=== PATIENT | female | born 1985 | race Caucasian/White ===

== ENCOUNTER 2016-05-27 20:35 | Observation (INO) | payer BC ==
[~2016-05-27] VITALS: Ht 170.2 cm; Wt 60.0 kg
[2016-05-27 20:42] VITALS: BP 88/56; PULSE 118; RESP 15; TEMP 98.7; O2SAT 99
--- NOTE | 2016-05-27 20:54 | PD ---
Physical Exam Date Seen by Provider: May 27, 2016 Time Seen by Provider: 20:45 Narrative Pt is a 30 year old female presenting to the ED with abdominal pain, pain started getting worse today. Pt feels nauseated. Skin around feeding tube looks irritated and pt reports a foul smell coming from it. Pt reports feeling fatigued, and generally not well. PCP out of state. Pt takes Soma but no other narcotic medication that would cause her to be more drowsy. PMHx: Small intestinal bacterial overgrowth, lupus, auto immune disorder recently diagnosed that she is unsure of the name of. . Data Data Last Documented VS Vital Signs Date Time Temp Pulse Resp B/P Pulse Ox O2 Delivery O2 Flow Rate FiO2 05/27/16 20:42 98.7 118 15 88/56 99 Room Air [facility] Supervised Visit with MARILYN: Shalonda Donaldson May 27, 2016 20:54
[2016-05-27] MEDS ORDERED: SODIUM CHLOR 0.9% 1000 ML INJ 1,000 ML IV SCH (21:41)
[2016-05-27 21:44] VITALS: RESP 16; O2SAT 99
[2016-05-27] MEDS ORDERED: ONDANSETRON HCL 4 MG/2 ML VIAL IVP ONE (21:45)
--- NOTE | 2016-05-27 21:51 | PD ---
HPI Chief Complaint: Abdominal Pain Time Seen by Provider: 21:45 Travel History International Travel<30 days: No Contact w/Intl Traveler<30days: No Traveled to known affect area: No History of Present Illness HPI 30-year-old female that presents to the ED for evaluation of generalized weakness, fatigue and abdominal discomfort. Per patient she has a history of lupus as well as [employer]UD[employer]IDENT with a PEG tube that presents to the ED for evaluation of feeling more fatigued and coldness as well as abdominal discomfort. Per patient she just changed her PEG tube herself yesterday. Per patient she's been having some discomfort as well as irritation of the skin around the area. She was concerned that she might have an infection as last and she had the symptoms per patient her heart stopped. Per patient she does have 2 daughters at home with her to have been sick with some GI symptoms. She states that she' s been feeling nauseous and has vomited. She denies any bleeding of any kind. No urinary or bowel movement issues. She chronically takes OxyContin and Soma states that she is compliant with the medications and has not been taking more than her usual. She states the pain is 6 out of 10. Does not radiate. Patient states mainly around the PEG tube area. On exam she is somewhat lethargic but answers questions a properly. Some of the history is obtained from the family member who is present and is me information about her medical conditions as well as a list of her medications. Patient went today to the [facility]. Per patient nothing seems to make the symptoms better or worse. Allergies to Compazine and reglan [facility] Past Medical History Diminished Hearing: No Gastrointestinal Disorders: Yes (IBS, GASTRO [place]) Tetanus Vaccination: Unknown Influenza Vaccination: No ?: Not LMP: 05/13/16 Past Surgical History Section: Yes (6X) Other Surgery: Yes (PEG TUBE PLACEMENT) Social History Alcohol Use: Yes (OCCASSIONALLY) Tobacco Use: Yes (OCCASSIONALLY) Substance Use: No Allergies-Medications (Allergen,Severity, Reaction): Coded Allergies: Compazine (Verified Allergy, Severe, 05/27/16) Reglan (Verified Allergy, Severe, 05/27/16) Review of Systems Except as stated in HPI: all other systems reviewed are Neg Physical Exam Narrative GENERAL: SKIN: Warm and dry. HEAD: Atraumatic. Normocephalic. EYES: Pupils equal and round. No scleral icterus. No injection or drainage. ENT: No nasal bleeding or discharge. Mucous membranes pink and moist. Tongue is midline. No uvula deviation. NECK: Trachea midline. No JVD. CARDIOVASCULAR: Regular rate and rhythm. No murmurs, S3, S4. RESPIRATORY: No accessory muscle use. Clear to auscultation. Breath sounds equal bilaterally. GASTROINTESTINAL: Abdomen soft, tenderness to palpation around the area of the PEG tube. Objective appears to be intact. Patient does have an area of erythema around the area of the PEG tube, nondistended. Hepatic and splenic margins not palpable. MUSCULOSKELETAL: Extremities without clubbing, cyanosis, or edema. No obvious deformities. Full range of motion of the upper and lower extremities bilaterally. 2+ pulses bilaterally. NEUROLOGICAL: Awake and alert and oriented 4.. No obvious cranial nerve deficits. Motor grossly within normal limits. Five out of 5 muscle strength in the arms and legs. Normal speech. PSYCHIATRIC: Appropriate mood and affect; insight and judgment normal. Data Data Last Documented VS Vital Signs Date Time Temp Pulse Resp B/P Pulse Ox O2 Delivery O2 Flow Rate FiO2 05/27/16 21:44 16 99 Room Air 05/27/16 20:42 98.7 118 88/56 Orders Complete Blood Count With Diff (05/27/16 21:41) Comprehensive Metabolic Panel (05/27/16 21:41) Lipase (05/27/16 21:41) Lactic Acid (05/27/16 21:41) Urinalysis - C+S If Indicated (05/27/16 21:41) Ct Abd/Pel W Iv Contrast(Rout) (05/27/16 21:41) Iv Access Insert/Monitor (05/27/16 21:41) Ecg Monitoring (05/27/16 21:41) Oximetry (05/27/16 21:41) Ondansetron Inj (Zofran Inj) (05/27/16 21:45) Sodium Chlor 0.9% 1000 Ml Inj (Ns 1000 M (05/27/16 21:41) Ed Urine Pregnancytest Poc (05/27/16 21:41) Blood Culture (05/27/16 21:41) Influenzae A/B Antigen (05/27/16 21:52) Sodium Chlor 0.9% 1000 Ml Inj (Ns 1000 M (05/27/16 22:30) MDM Medical Decision Making Medical Screen Exam Complete: Yes Emergency Medical Condition: Yes Medical Record Reviewed: Yes Differential Diagnosis Sepsis versus abdominal discomfort versus abdominal pain versus acute abdomen versus gastroparesis versus obstruction Narrative Course 30-year-old female that presents to the ED for evaluation of lethargy and abdominal pain. Patient was properly examined and was found to have signs and symptoms of unclear etilogy at this time. Patient does have a history of GI issues as well as IBS. At this time I recommend labs and imaging. Patient was given IV fluids and antiemetics. Case signed out to my attending pending dispo. Sepsis Criteria SIRS Criteria (2 or more): Heart rate over 90 Bhavesh Oliveira May 27, 2016 21:51
--- NOTE | 2016-05-27 22:23 | PD ---
Physical Exam Date Seen by Provider: May 27, 2016 Time Seen by Provider: 22:22 Narrative The patient is a 30-year-old female was initially evaluated by the mid-level provider, Bhavesh Oliveira PA-C. Please refer to the initial history, physical, diagnostic evaluation, and treatment modality plan. Data Data Last Documented VS Vital Signs Date Time Temp Pulse Resp B/P Pulse Ox O2 Delivery O2 Flow Rate FiO2 05/28/16 00:36 77 18 121/68 99 Room Air 05/27/16 20:42 98.7 Orders Complete Blood Count With Diff (05/27/16 21:41) Comprehensive Metabolic Panel (05/27/16 21:41) Lipase (05/27/16 21:41) Lactic Acid (05/27/16 21:41) Urinalysis - C+S If Indicated (05/27/16 21:41) Ct Abd/Pel W Iv Contrast(Rout) (05/27/16 21:41) Iv Access Insert/Monitor (05/27/16 21:41) Ecg Monitoring (05/27/16 21:41) Oximetry (05/27/16 21:41) Ondansetron Inj (Zofran Inj) (05/27/16 21:45) Sodium Chlor 0.9% 1000 Ml Inj (Ns 1000 M (05/27/16 21:41) Ed Urine Pregnancytest Poc (05/27/16 21:41) Blood Culture (05/27/16 21:41) Influenzae A/B Antigen (05/27/16 21:52) Sodium Chlor 0.9% 1000 Ml Inj (Ns 1000 M (05/27/16 22:30) Sodium Chlor 0.9% 1000 Ml Inj (Ns 1000 M (05/27/16 23:30) Iohexol 350 Inj (Omnipaque 350 Inj) (05/27/16 23:48) Morphine Inj (Morphine Inj) (05/28/16 00:30) Diphenhydramine Inj (Benadryl Inj) (05/28/16 00:45) Admit Order (Ed Use Only) (05/28/16 00:37) Labs Laboratory Tests Test 05/27/16 05/27/16 22:40 23:55 White Blood Count 4.9 TH/MM3 Red Blood Count 3.98 MIL/MM3 Hemoglobin 11.1 GM/DL Hematocrit 33.5 % Mean Corpuscular Volume 84.1 FL Mean Corpuscular Hemoglobin 27.9 PG Mean Corpuscular Hemoglobin 33.2 % Concent Red Cell Distribution Width 14.3 % Platelet Count 284 TH/MM3 Mean Platelet Volume 10.5 FL Neutrophils (%) (Auto) 56.0 % Lymphocytes (%) (Auto) 35.4 % Monocytes (%) (Auto) 7.0 % Eosinophils (%) (Auto) 0.9 % Basophils (%) (Auto) 0.7 % Neutrophils # (Auto) 2.7 TH/MM3 Lymphocytes # (Auto) 1.7 TH/MM3 Monocytes # (Auto) 0.3 TH/MM3 Eosinophils # (Auto) 0.0 TH/MM3 Basophils # (Auto) 0.0 TH/MM3 CBC Comment DIFF FINAL Differential Comment Sodium Level 145 MEQ/L Potassium Level 4.0 MEQ/L Chloride Level 111 MEQ/L Carbon Dioxide Level 22.0 MEQ/L Anion Gap 12 MEQ/L Blood Urea Nitrogen 8 MG/DL Creatinine 0.61 MG/DL Estimat Glomerular Filtration 114 ML/MIN Rate Random Glucose 80 MG/DL Lactic Acid Level 3.5 mmol/L Calcium Level 8.0 MG/DL Total Bilirubin 0.3 MG/DL Aspartate Amino Transf 13 U/L (AST/SGOT) Alanine Aminotransferase 17 U/L (ALT/SGPT) Alkaline Phosphatase 64 U/L Total Protein 6.9 GM/DL Albumin 4.0 GM/DL Lipase 114 U/L Urine Color YELLOW Urine Turbidity CLEAR Urine pH 6.0 Urine Specific [place] 1.041 Urine Protein 30 mg/dL Urine Glucose (UA) NEG mg/dL Urine Ketones 40 mg/dL Urine Occult Blood NEG Urine Nitrite NEG Urine Bilirubin NEG Urine Urobilinogen LESS THAN 2.0 MG/DL Urine Leukocyte Esterase NEG Urine RBC LESS THAN 1 /hpf Urine WBC 3 /hpf Urine Squamous Epithelial 1 /hpf Cells Urine Bacteria RARE /hpf Urine Hyaline Casts 20 /lpf Urine Granular Casts 1 /lpf Urine Mucus MOD /lpf Microscopic Urinalysis Comment CULT NOT INDICATED MDM Medical Record Reviewed: Yes Supervised Visit with MARILYN: Yes Interpretation(s) CT of the abdomen and pelvis reveals normal examination. Patient has a gastrojejunostomy tube without complication. Laboratory Tests Test 05/27/16 22:40 White Blood Count 4.9 TH/MM3 Red Blood Count 3.98 MIL/MM3 Hemoglobin 11.1 GM/DL Hematocrit 33.5 % Mean Corpuscular Volume 84.1 FL Mean Corpuscular Hemoglobin 27.9 PG Mean Corpuscular Hemoglobin 33.2 % Concent Red Cell Distribution Width 14.3 % Platelet Count 284 TH/MM3 Mean Platelet Volume 10.5 FL Neutrophils (%) (Auto) 56.0 % Lymphocytes (%) (Auto) 35.4 % Monocytes (%) (Auto) 7.0 % Eosinophils (%) (Auto) 0.9 % Basophils (%) (Auto) 0.7 % Neutrophils # (Auto) 2.7 TH/MM3 Lymphocytes # (Auto) 1.7 TH/MM3 Monocytes # (Auto) 0.3 TH/MM3 Eosinophils # (Auto) 0.0 TH/MM3 Basophils # (Auto) 0.0 TH/MM3 CBC Comment DIFF FINAL Differential Comment Sodium Level 145 MEQ/L Potassium Level 4.0 MEQ/L Chloride Level 111 MEQ/L Carbon Dioxide Level 22.0 MEQ/L Anion Gap 12 MEQ/L Blood Urea Nitrogen 8 MG/DL Creatinine 0.61 MG/DL Estimat Glomerular Filtration 114 ML/MIN Rate Random Glucose 80 MG/DL Lactic Acid Level 3.5 mmol/L Calcium Level 8.0 MG/DL Total Bilirubin 0.3 MG/DL Aspartate Amino Transf 13 U/L (AST/SGOT) Alanine Aminotransferase 17 U/L (ALT/SGPT) Alkaline Phosphatase 64 U/L Total Protein 6.9 GM/DL Albumin 4.0 GM/DL Lipase 114 U/L Last Impressions Abdomen/Pelvis CT 05/27/16 2141 Signed Impressions: Service Date/Time: Friday, May 27, 2016 23:36 - CONCLUSION: Normal examination. Patient has a gastrojejunostomy tube without complication. Mookie Meeks MD Date/Time Procedure Status Source Growth 05/27/16 22:30 Aerobic Blood Culture Received Blood Peripheral Pending 05/27/16 22:30 Anaerobic Blood Culture Received Blood Peripheral Pending 05/27/16 22:40 Aerobic Blood Culture Received Blood Peripheral Pending 05/27/16 22:40 Anaerobic Blood Culture Received Blood Peripheral Pending 05/27/16 23:55 Influenza Types A,B Antigen ([place]) - Final Complete Nasal Washing NEGATIVE FOR FLU A AND B ANTIGEN.... Differential Diagnosis Differential diagnosis includes sepsis, intra-abdominal abscess, dehydration, electrolyte abnormality, colitis, enteritis, atypical cholecystitis, pancreatitis, gastritis. Narrative Course I, Dr. Hinojosa, have reviewed the advance practice practitioner's documentation and am in agreement, met with the patient face to face, made the diagnosis, and the medical decision making was done by me. *My assessment and Findings: The patient is a 30-year-old female was initially evaluated by the mid-level provider, please refer to the initial history, physical, diagnostic evaluation, and treatment modality plan. The patient is currently visiting from [place], [place]. The patient states she has a history of intestinal overgrowth bacteria and was recently diagnosed with lupus. The patient is not currently on any rheumatologic medications, but takes multiple pain medicines and sedatives on a daily basis including Ativan, Soma, and oxycodone. The patient does have a G-tube in place, complains of mild irritation just superior to the G-tube. She is also on clonidine for a history of hypertension. The patient is currently in town, visiting her sister. The patient does complain of increased lethargy, denies any increase intake of her oxycodone, Soma, or Ativan. On examination the patient is somewhat lethargic, does respond to voice commands and will follow commands. Her blood pressure initially had a systolic that range from the 70s to the 90s, she was administered IV fluids. Initially she was tachycardic 117, heart rate came down into the 70s. Abdominal exam reveals mild tenderness but no guarding or rigidity. CT of the abdomen and pelvis was ordered. Labs were drawn and sent. The patient was requesting pain medications, however, advised her I cannot administered any narcotic medications as her blood pressure was slightly low at she was slightly lethargic, possibly secondary to her current medications. The patient's white count was normal. Lactic acid is mildly elevated at 3.5, patient was administered 2 L of IV fluids, third liter of IV fluids was ordered. UA reveals ketones, otherwise unremarkable. Influenza is negative. The patient was reevaluated at 12:23 AM, her blood pressure was up to 121/80. However, she still feels lethargic and complains of pain. She is requesting pain medications. I advised her I would give her some morphine, but would not write for the [place] Ativan and she is still somewhat lethargic. The on-call medical team will be paged for 23 hour observation. Sepsis Criteria SIRS Criteria (2 or more): Heart rate over 90 Severe Sepsis (+one): Hypotension, Lactate >2 Physician Communication Physician Communication The on-call medical team was paged for admission. I discussed the patient Dr. Dominguez who agrees with 23 hour observation. Diagnosis Primary Impression: Abdominal pain Qualified Code: R10.84 - Generalized abdominal pain Additional Impressions: Dehydration Lactic acidosis Admitting Information Admitting Physician Requests: Observation Condition: Stable Harley Hinojosa MD May 27, 2016 22:23
[2016-05-27] MEDS ORDERED: SODIUM CHLOR 0.9% 1000 ML INJ 1,000 ML IV ONE ×2 (22:30→23:30)
[2016-05-27 22:55] LABS: AUTOMATED NEUTROPHIL # 2.7 TH/MM3 (1.8-7.7); BASOPHIL % 0.7 % (0.0-2.0); EOSINOPHIL % 0.9 % (0.0-4.0); HEMATOCRIT 33.5 % (35.0-46.0); HEMO FLAGS DIFF FINAL; LYMPH % 35.4 % (9.0-44.0); LYMPHOCYTE # 1.7 TH/MM3 (1.0-4.8); MEAN CELL VOLUME 84.1 FL (80.0-100.0); MEAN CORPUSCULAR HEMOGLOBIN 27.9 PG (27.0-34.0); MEAN CORPUSCULAR HGB CONC 33.2 % (32.0-36.0); PLATELET COUNT 284 TH/MM3 (150-450); RED BLOOD COUNT 3.98 MIL/MM3 (4.00-5.30); RED CELL DISTRIBUTION WIDTH 14.3 % (11.6-17.2); WHITE BLOOD COUNT 4.9 TH/MM3 (4.0-11.0)
[2016-05-27 23:00] VITALS: BP 79/50; PULSE 75; RESP 16; O2SAT 97
[2016-05-27 23:12] LABS: ALT (GPT) 17 U/L (10-53); ANION GAP 12 MEQ/L (5-15); AST (GOT) 13 U/L (15-37); BLOOD UREA NITROGEN 8 MG/DL (7-18); CHLORIDE 111 MEQ/L (98-107); GLOMERULAR FILTRATION RATE 114 ML/MIN (>89); SODIUM (NA) 145 MEQ/L (136-145)
[2016-05-27 23:14] LABS: ALKALINE PHOSPHATASE 64 U/L (45-117); TOTAL BILIRUBIN ADULT 0.3 MG/DL (0.2-1.0)
[2016-05-27 23:23] VITALS: BP 83/51; PULSE 92; RESP 20; O2SAT 98
[2016-05-27] MEDS ORDERED: CLON0.2T PO (23:27)
[2016-05-27] MEDS ORDERED: OXYC-396 PO (23:27)
[2016-05-27] MEDS ORDERED: SOMA350T PO (23:27)
[2016-05-27] MEDS ORDERED: LORA-475 PO (23:27)
[2016-05-27] MEDS ORDERED: IOHEXOL 350 MG/ML 10 ML VIAL (for RAD DIAG) IV ONE (23:48)
[2016-05-27 23:59] VITALS: BP 91/52; PULSE 75; RESP 18; O2SAT 99
[2016-05-28] VITALS (8 sets, daily range): BP systolic 104–170; BP diastolic 57–91; PULSE 74–116; RESP 14–19; TEMP 96.9–98.6; O2SAT 97–100
--- NOTE | 2016-05-28 00:05 | RADRPT ---
EXAM DATE/TIME: 05/27/2016 23:36 [facility] COMPARISON: No previous studies available for comparison. INDICATIONS : Abdomen pain and nausea. IV CONTRAST: 80 cc Omnipaque 350 (iohexol) IV ORAL CONTRAST: No oral contrast ingested. RADIATION DOSE: 6.09 CTDIvol (mGy) MEDICAL HISTORY : Gastroparesis. Lupus SURGICAL HISTORY : section. Peg tube ENCOUNTER: Initial ACUITY: 1 day PAIN SCALE: 8/10 LOCATION: Bilateral abdomen TECHNIQUE: Volumetric scanning of the abdomen and pelvis was performed. Using automated exposure control and ad justment of the mA and/or kV according to patient size, radiation dose was kept as low as reasonably achievable to obtain optimal diagnostic quality images. FINDINGS: LOWER LUNGS: The visualized lower lungs are clear. LIVER: Homogeneous density without lesion. There is no dilation of the biliary tree. No calcified gallston es. SPLEEN: Normal size without lesion. PANCREAS: Within normal limits. KIDNEYS: Normal in size and shape. There is no mass, stone or hydronephrosis. ADRENAL GLANDS: Within normal limits. VASCULAR: There is no aortic aneurysm. BOWEL/MESENTERY: Gastrojejunostomy tube is noted . The stomach, small bowel, and colon demonstrate no acute abnormalit y. There is no free intraperitoneal air or fluid. ABDOMINAL WALL: Within normal limits. RETROPERITONEUM: There is no lymphadenopathy. BLADDER: No wall thickening or mass. REPRODUCTIVE: Within normal limits. INGUINAL: There is no lymphadenopathy or hernia. MUSCULOSKELETAL: Within normal limits for patient age. CONCLUSION: Normal examination. Patient has a gastrojejunostomy tube without complication. Mookie Meeks MD on May 28, 2016 at 0:02 Board Certified Radiologist. This report was verified electronically.
[2016-05-28 00:13] LABS: BACTERIA, URINE RARE /hpf; BLOOD, URINE NEG (NEG); GLUCOSE,URINE NEG (NEG); GRANULAR CAST, URINE 1 /lpf; HYALINE CAST, URINE 20 /lpf (RARE); KETONE, URINE 40 mg/dL (NEG); MUCUS URINE MOD /lpf (OCC); NITRITE,URINE NEG (NEG); SQUAMOUS EPITHELIAL CELL URINE 1 /hpf (0-5); URINE COLOR YELLOW (YELLW/STRAW)
[2016-05-28] MEDS ORDERED: MORPHINE SULFATE 4 MG/ML INJ IV PUSH ONE (00:30)
[2016-05-28] MEDS ORDERED: diphenhydrAMINE HCL 50 MG/ML VIAL IV PUSH ONE (00:45)
[2016-05-28] MEDS ORDERED: MAGNESIUM HYDROXIDE SUSP 30 ML CUP PO PRN (00:45)
[2016-05-28] MEDS ORDERED: ACETAMINOPHEN 325 MG TAB PO PRN (00:45)
[2016-05-28] MEDS ORDERED: NALOXONE HCL 0.4 MG/ML AMP IV PRN (00:45)
--- NOTE | 2016-05-28 00:52 | HHI.HP ---
[facility] Non-Staff Admission Diagnosis abdominal pain, lactic acidosis, dehydration Diagnoses: (1) Sepsis (2) Dehydration (3) Abdominal pain Chief Complaint: severe abdominal pain Travel History International Travel<30 Days: No Contact w/Intl Traveler <30 Da: No Traveled to Known Affected Are: No History of Present Illness Mrs. Centeno is a 30-year-old chronically ill female visiting her sister here in the [place] area from [place], [place] with a history of lupus, gastroparesis, hypertension, irritable bowel syndrome who presented to the emergency room on 05/27/2016 complaining of severe abdominal pain around GJ tube. CT scan of abdomen/pelvis was normal and showed G J-tube without complication. Lactic acid is elevated at 3.5 and UA is consistent with dehydration with urine specific gravity of 1.041, + protein, and + ketones.. Patient has had a GJ tube since 2014 and it is not exactly clear why this was placed. She has chronic pain and takes oxycodone 20 mg every 3 hours and also takes Soma. She states that she always has some degree of abdominal pain but this morning she developed severe pain that she describes as aching and located around her GJ tube. She also has some excoriated lesions near the tube insertion site but she states been present for about 2-3 weeks with some surrounding erythema. She reports chills and subjective fever, nausea without vomiting. She states that she has been able to hold down liquids but not solids. She has been in [place] for one week and is supposed to return back to [place] next . . Review of Systems Except as stated in HPI: all other systems reviewed are Neg Past Family Social History Past Medical History Gastroparesis Irritable Bowel Syndrome Lupus - rare type Hypertension . Past Surgical History G/J-tube placement - 2014 Right knee surgery x 6 . Reported Medications Reported Meds & Active Scripts Active Reported Oxycodone (Oxycodone HCl) 20 Mg Tab 20 Mg PO Q3HR PRN Soma (Carisoprodol) 350 Mg Tab 350 Mg PO Q6HR PRN Clonidine (Clonidine HCl) 0.2 Mg Tab 0.2 Mg PO QID - takes at least once daily for hypertension Ativan (Lorazepam) 2 Mg Tab 2 Mg PO Q6H PRN . Allergies: Coded Allergies: Compazine (Verified Allergy, Severe, 05/27/16) Reglan (Verified Allergy, Severe, 05/27/16) Active Ordered Medications Current Medications Ondansetron HCl 4 mg 4 mg ONCE ONCE IVP Last administered on 05/27/16 22:56; Start 05/27/16 at 21:45; Stop 05/27/16 at 21:46; Status DC Sodium Chloride 1,000 ml @ 1,000 mls/hr Q1H IV Last administered on 05/27/16 22:56; Start 05/27/16 at 21:41; Stop 05/27/16 at 22:40; Status DC Sodium Chloride 1,000 ml @ 999 mls/hr BOLUS ONCE IV Last administered on 05/27 22:56; Start 05/27/16 at 22:30; Stop 05/27/16 at 23:30; Status DC Sodium Chloride (NS 1000 ml Inj) 1,000 ml @ 999 mls/hr BOLUS ONCE IV Last administered on 05/28/16 00:16; Start 05/27/16 at 23:30; Stop 05/28/16 at 00:30 ; Status DC Iohexol (Omnipaque 350 Inj) 80 ml STK-MED ONCE IV Last administered on 23:48; Start 05/27/16 at 23:48; Stop 05/27/16 at 23:49; Status DC Morphine Sulfate (Morphine Inj) 2 mg ONCE ONCE IV PUSH Last administered on 00:43; Start 05/28/16 at 00:30; Stop 05/28/16 at 00:31; Status DC Diphenhydramine HCl 25 mg 25 mg ONCE ONCE IV PUSH Last administered on 00:43; Start 05/28/16 at 00:45; Stop 05/28/16 at 00:46; Status DC Sodium Chloride (NS 1000 ml Inj) 1,000 ml @ 150 mls/hr Q6H40M IV ; Start at 00:40 Sodium Chloride (NS Flush) 2 ml UNSCH PRN IV FLUSH FLUSH AFTER USING IV ACCESS ; Start 05/28/16 at 00:45 Sodium Chloride (NS Flush) 2 ml BID IV FLUSH ; Start 05/28/16 at 09:00 Acetaminophen (Tylenol) 650 mg Q4H PRN PO Fever, headache, Pain 1-4; Start at 00:45 Ondansetron HCl (Zofran Inj) 4 mg Q6H PRN IVP NAUSEA OR VOMITING; Start at 00:45 Magnesium Hydroxide (Milk Of Monico Torres) 30 ml Q12H PRN PO CONSTIPATION; Start 05/28/16 at 00:45 Naloxone HCl (Narcan Inj) 0.4 mg UNSCH PRN IV SEE LABEL COMMENTS; Start at 00:45 Morphine Sulfate (Morphine Inj) 4 mg Q3H PRN IV PUSH PAIN SCALE 5 TO 10; Start 05/28/16 at 00:45 . Family History Has cousins with lupus . Social History Tobacco: rare use Alcohol: rare use Illicit Drugs: denies . Physical Exam Vital Signs Vital Signs Date Time Temp Pulse Resp B/P Pulse Ox O2 Delivery O2 Flow Rate FiO2 05/28/16 00:36 77 18 121/68 99 Room Air 05/27/16 23:59 75 18 91/52 99 Room Air 05/27/16 23:23 92 20 83/51 98 Room Air 05/27/16 23:00 75 16 79/50 97 Room Air 05/27/16 21:44 16 99 Room Air 05/27/16 20:42 98.7 118 15 88/56 99 Room Air Physical Exam GENERAL: This is a thin, somewhat lethargic patient, in no apparent distress. SKIN: No rashes, ecchymoses. Cool and dry. G/J-tube LUQ abdomen and small area of erythema and edema near tube insertion sitecore developer: Atraumatic. Normocephalic. EYES: No scleral icterus. No injection or drainage. ENT: Nose without bleeding, purulent drainage. NECK: Trachea midline. No JVD or lymphadenopathy. CARDIOVASCULAR: Regular rate and rhythm without murmurs, gallops, or rubs. RESPIRATORY: Clear to auscultation. Breath sounds equal bilaterally. No wheezes , rales, or rhonchi. GASTROINTESTINAL: Abdomen soft, nondistended. No guarding. Tender near G-J tube. MUSCULOSKELETAL: Extremities without clubbing, cyanosis, or edema. No calf tenderness. NEUROLOGICAL: Somewhat lethargic; hypophonic speech. . Laboratory Laboratory Tests Test 05/27/16 05/27/16 22:40 23:55 White Blood Count 4.9 Red Blood Count 3.98 Hemoglobin 11.1 Hematocrit 33.5 Mean Corpuscular Volume 84.1 Mean Corpuscular Hemoglobin 27.9 Mean Corpuscular Hemoglobin 33.2 Concent Red Cell Distribution Width 14.3 Platelet Count 284 Mean Platelet Volume 10.5 Neutrophils (%) (Auto) 56.0 Lymphocytes (%) (Auto) 35.4 Monocytes (%) (Auto) 7.0 Eosinophils (%) (Auto) 0.9 Basophils (%) (Auto) 0.7 Neutrophils # (Auto) 2.7 Lymphocytes # (Auto) 1.7 Monocytes # (Auto) 0.3 Eosinophils # (Auto) 0.0 Basophils # (Auto) 0.0 CBC Comment DIFF FINAL Differential Comment Sodium Level 145 Potassium Level 4.0 Chloride Level 111 Carbon Dioxide Level 22.0 Anion Gap 12 Blood Urea Nitrogen 8 Creatinine 0.61 Estimat Glomerular Filtration 114 Rate Random Glucose 80 Lactic Acid Level 3.5 Calcium Level 8.0 Total Bilirubin 0.3 Aspartate Amino Transf 13 (AST/SGOT) Alanine Aminotransferase 17 (ALT/SGPT) Alkaline Phosphatase 64 Total Protein 6.9 Albumin 4.0 Lipase 114 Urine Color YELLOW Urine Turbidity CLEAR Urine pH 6.0 Urine Specific [place] 1.041 Urine Protein 30 Urine Glucose (UA) NEG Urine Ketones 40 Urine Occult Blood NEG Urine Nitrite NEG Urine Bilirubin NEG Urine Urobilinogen LESS THAN 2.0 Urine Leukocyte Esterase NEG Urine RBC LESS THAN 1 Urine WBC 3 Urine Squamous Epithelial 1 Cells Urine Bacteria RARE Urine Hyaline Casts 20 Urine Granular Casts 1 Urine Mucus MOD Microscopic Urinalysis Comment CULT NOT INDICATED Date/Time Procedure Status Source Growth 05/27/16 23:55 Influenza Types A,B Antigen ([facility]) - Final Complete Nasal Washing NEGATIVE FOR FLU A AND B ANTIGEN.... 05/27/16 22:40 Aerobic Blood Culture Received Blood Peripheral Pending 05/27/16 22:40 Anaerobic Blood Culture Received Blood Peripheral Pending Result Diagram: 05/27/16223905/27/160 Imaging Last Impressions Abdomen/Pelvis CT 05/27/162140 Signed Impressions: Service Date/Time: Friday, May 27, 2016 23:36 - CONCLUSION: Normal examination. Patient has a gastrojejunostomy tube without complication. Mookie Meeks MD Assessment and Plan Problem List: (1) Sepsis ICD Code: A41.9 Status: Acute (2) Dehydration ICD Code: E86.0 Status: Acute (3) Abdominal pain ICD Code: R10.9 Status: Acute Assessment and Plan Sepsis - Hypotensive and tachycardic - Lactic acid 3.5; will recheck in a.m. - follow results - Ceftriaxone 2 g IV every 24 hours for suspected infection Dehydration - IV fluid hydration with normal saline at 150 cc per hour - clear liquid diet Abdominal Pain - Abdomen/pelvis CT normal - GJ tube without complication - Morphine 4 mg IV every 3 hours as needed for pain Excoriation around GJ tube - Bactroban 2% ointment 3 times a day - Keep area clean and dry DVT prophylaxis - SCDs Written by Angelique Casiano, acting as scribe for Dr. Dominguez on 05/28/16 at 01:00. This note was transcribed by scribe ANN-MARIE Rose. I, Dr. Harshad Dominguez personally performed the history, physical exam, and medical decision making; and confirmed the accuracy of the information in the transcribed note. Authenticated by Dr. Harshad Dominguez on 05/28/16 at 03:09. Discussed Condition With ER physician, patient, and patient's Problem Qualifiers (1) Sepsis: Qualified Code: A41.9 - Sepsis, due to unspecified organism (2) Abdominal pain: Qualified Code: R10.84 - Generalized abdominal pain Angelique aCsiano May 28, 2016 12:52 am Kimi Dominguez DO May 28, 2016 3:10 am
[2016-05-28] MEDS: MUPIROCIN 2% OINT 22 GM TUBE TOPICAL SCH ×4 (02:12→21:35)
[2016-05-28] MEDS: SODIUM CHLORIDE 0.9% FLUSH 10 ML FLUSH IV FLUSH PRN ×3 (02:12→16:13)
[2016-05-28] MEDS: SODIUM CHLOR 0.9% 1000 ML INJ 1,000 ML IV SCH ×2 (02:12→09:53)
[2016-05-28] MEDS: cefTRIAXone INJ 2,000 MG in SODIUM CHLORIDE 0.9% INJ 100 ML IV SCH (02:12)
[2016-05-28] MEDS: MORPHINE SULFATE 4 MG/ML INJ IV PUSH PRN ×3 (04:32→11:19)
[2016-05-28] MEDS ORDERED: cloNIDine HCL 0.1 MG TAB PO PRN (07:30)
[2016-05-28 09:05] LABS: AUTOMATED NEUTROPHIL # 1.3 TH/MM3 (1.8-7.7); BASOPHIL % 0.8 % (0.0-2.0); EOSINOPHIL # 0.1 TH/MM3 (0-0.4); EOSINOPHIL % 3.8 % (0.0-4.0); HEMATOCRIT 33.3 % (35.0-46.0); HEMO FLAGS DIFF FINAL; LYMPH % 51.8 % (9.0-44.0); MEAN CELL VOLUME 85.3 FL (80.0-100.0); MEAN CORPUSCULAR HEMOGLOBIN 27.1 PG (27.0-34.0); MEAN CORPUSCULAR HGB CONC 31.8 % (32.0-36.0); MONO % 9.6 % (0.0-8.0); PLATELET COUNT 184 TH/MM3 (150-450); RED BLOOD COUNT 3.91 MIL/MM3 (4.00-5.30); RED CELL DISTRIBUTION WIDTH 14.8 % (11.6-17.2); WHITE BLOOD COUNT 3.9 TH/MM3 (4.0-11.0)
[2016-05-28 09:38] LABS: BICARBONATE 23.3 MEQ/L (21.0-32.0); CALCIUM-PROTEIN CORRECTED 8.1 MG/DL (8.5-10.1); POTASSIUM 3.7 MEQ/L (3.5-5.1); TOTAL BILIRUBIN ADULT 0.4 MG/DL (0.2-1.0)
[2016-05-28] MEDS: SODIUM CHLORIDE 0.9% FLUSH 10 ML FLUSH IV FLUSH SCH ×2 (09:53→21:00)
[2016-05-28] MEDS: ONDANSETRON HCL 4 MG/2 ML VIAL IVP PRN ×2 (09:53→16:13)
[2016-05-28] MEDS ORDERED: LORazepam 0.5 MG TAB PO ONE (10:00)
[2016-05-28 10:32] LABS: COMMENT (UR) CATH-CULTURE IND; CULTURE IF INDICATED CATH CULTURE IND
[2016-05-28] MEDS: SODIUM CHLOR 0.45% 1000 ML INJ 1,000 ML IV SCH ×2 (10:41→21:35)
[2016-05-28 10:53] LABS: AMPHETAMINE, URINE NEG (NEG); BARBITURATES, URINE NEG (NEG); COCAINE, URINE NEG (NEG)
[2016-05-28] MEDS ORDERED: LORazepam 0.5 MG TAB G-TUBE ONE (11:15)
[2016-05-28] MEDS ORDERED: ULTR50TA5 PO (11:46)
[2016-05-28] MEDS ORDERED: GABA300C5 PO (11:46)
[2016-05-28] MEDS ORDERED: KEPP10002 PO (11:46)
[2016-05-28] MEDS ORDERED: LORazepam 1 MG TAB G-TUBE ONE (14:45)
[2016-05-28] MEDS ORDERED: CYCLOBENZAPRINE HCL 10 MG TAB G-TUBE ONE (14:45)
--- NOTE | 2016-05-28 14:55 | HHI.PR ---
Subjective Remarks Follow-up for abdominal cramping. Patient's sister and mother at bedside. RN also at bedside. The patient states that she came in because she was feeling weak and like her blood pressure was low as well as having abdominal cramping. Today she continues to complain of abdominal cramping and "spasms". She does have a GJ tube, but is able to tolerate liquids by mouth, and has been drinking cashew milk. She does feel like her intake has been decreased over the past few days because of the abdominal cramping. She states that she chronically has abdominal issues due to gastroparesis and IBS. She had a normal bowel movement yesterday. She also has chronic issues with bladder spasms and intermittent urinary retention and incontinence, currently having urinary retention today. She is visiting from [place], sees pain management there. With her family's prompting, she has been trying to wean herself off of controlled medications because she knows they exacerbate her gastroparesis. She is requesting her home Soma specifically due to spasms, but is willing to take something not as strong. She has not taken any of her oxycodone in 4 days. She requests IV morphine and IV Benadryl to help with her withdrawals. She states that she gets itching with morphine in the Benadryl helps, no itching with oxycodone. Objective Vitals Vital Signs Date Time Temp Pulse Resp B/P Pulse Ox O2 Delivery O2 Flow Rate FiO2 05/28/16 11:14 98.2 90 16 132/77 99 05/28/16 08:04 98.0 86 14 112/60 98 05/28/16 04:42 16 05/28/16 04:00 96.9 74 16 122/57 98 05/28/16 01:45 78 18 104/69 100 Room Air 05/28/16 00:36 77 18 121/68 99 Room Air 05/27/16 23:59 75 18 91/52 99 Room Air 05/27/16 23:23 92 20 83/51 98 Room Air 05/27/16 23:00 75 16 79/50 97 Room Air 05/27/16 21:44 16 99 Room Air 05/27/16 20:42 98.7 118 15 88/56 99 Room Air Result Diagram: 05/28/16 0845 05/28/16 0845 Imaging Last Impressions Abdomen/Pelvis CT 05/27/162140 Signed Impressions: Service Date/Time: Friday, May 27, 2016 23:36 - CONCLUSION: Normal examination. Patient has a gastrojejunostomy tube without complication. Mookie Meeks MD Objective Remarks GENERAL: Well-developed well-nourished. In mild distress secondary to withdrawals. SKIN: Warm and dry. Superficial excoriations around GJ tube. HEENT: Normocephalic. Pupils equal and round. Mucous membranes pink and moist. CARDIOVASCULAR: Regular rate and rhythm. No murmur appreciated. RESPIRATORY: No accessory muscle use. Clear to auscultation. Breath sounds equal bilaterally. GASTROINTESTINAL: Abdomen soft, non-tender, nondistended. Bowel sounds x4. GJ tube in place. MUSCULOSKELETAL: No obvious deformities. No clubbing or cyanosis. No edema. NEUROLOGICAL: Awake and alert. No focal neurological deficits. Moves upper and lower extremities spontaneously. Normal speech. PSYCHIATRIC: Appropriate mood and affect; insight and judgment normal. A/P Problem List: (1) Dehydration ICD Code: E86.0 Status: Resolved (2) Abdominal pain ICD Code: R10.9 Status: Acute Assessment and Plan 30-year-old chronically ill female visiting her sister here in the [place] area from [place] with a past medical history history of lupus, gastroparesis, hypertension, irritable bowel syndrome who presented with generalized weakness and abdominal cramping SIRS, Hypotension, tachycardia, lactic acidosis: Suspect secondary to withdrawals and dehydration. Afebrile, no leukocytosis. Vitals and labs improved with IVF. Labs today reviewed, changed IV fluids to half-normal saline at decreased rate. Abnormal UA and possible UTI: UA appears borderline, however with urinary retention will empirically treat with IV Ceftriaxone 2 g IV every 24 hours. Follow-up urine culture. If patient is found to have UTI, she would meet severe sepsis criteria. Gastroparesis: Likely exacerbating dehydration. Continue clear liquids. Patient informed that she can resume home tube feeding products as tolerated. Abdominal Pain/cramping: Suspect secondary to acute opiate withdrawal. Abdomen/ pelvis CT normal with GJ tube in place. LFTs and lipase within normal limits. Patient last took oxycodone 4 days ago and UDS is negative for opiates. Treat withdrawal as below. Acute withdrawal from multiple controlled substances: Patient on multiple controlled substances including oxycodone, Ativan, Soma as outpatient, states she is compliant and follows up with physicians in [place]. She feels like she is currently experiencing withdrawal symptoms with shaking, nausea, abdominal cramping. However, she would like to wean off of these medications. The patient's sister will bring in the patient's pill bottles to confirm home doses. UDS positive for benzodiazepines. Once home medications are confirmed we will resume oxycodone, Ativan at decreased doses. Change Soma to Flexeril to attempt to avoid sedation. Acute urinary retention: The patient felt like she was unable to void. Bladder scan was done which showed 550 cc in the bladder. The patient states that this is chronic. Insert Maxwell catheter. Possible voiding trial tomorrow vs outpatient urology follow-up. Excoriation around GJ tube - Bactroban 2% ointment 3 times a day - Keep area clean and dry DVT prophylaxis - SCDs Discharge Planning Possible discharge tomorrow pending further clinical improvement. Problem Qualifiers (1) Abdominal pain: Qualified Code: R10.84 - Generalized abdominal pain Canelo Angela May 28, 2016 14:55
[2016-05-28] MEDS ORDERED: ALPR0.5T3 PO (15:04)
[2016-05-28] MEDS ORDERED: LORA2TAB7 PO (15:04)
[2016-05-28] MEDS ORDERED: ONDA1TAB17 PO (15:04)
[2016-05-28] MEDS ORDERED: DOC-8.6T PO (16:22)
[2016-05-28] MEDS ORDERED: CARV3.12 PO (16:22)
[2016-05-28] MEDS ORDERED: CREON24 PO (16:22)
[2016-05-28] MEDS ORDERED: SENN8.6T5 PO (16:22)
[2016-05-28] MEDS ORDERED: LORazepam 2 MG/ML VIAL IV PUSH PRN (17:45)
[2016-05-28] MEDS: GABAPENTIN 300 MG CAP PO SCH ×2 (18:00→21:33)
[2016-05-28] MEDS: LIPASE/PROTEASE/AMYLASE (24,000/76,000/120,000) CAP PO SCH (18:30)
[2016-05-28] MEDS: levETIRAcetam 500 MG TAB PO SCH (21:34)
[2016-05-28] MEDS: LORazepam 0.5 MG TAB G-TUBE PRN (23:27)
[2016-05-29] MEDS: CYCLOBENZAPRINE HCL 10 MG TAB G-TUBE PRN ×2 (00:08→08:01)
[2016-05-29] MEDS: cefTRIAXone INJ 2,000 MG in SODIUM CHLORIDE 0.9% INJ 100 ML IV SCH (01:41)
[2016-05-29 03:52] VITALS: BP 105/73; PULSE 89; RESP 19; TEMP 98; O2SAT 97
[2016-05-29] MEDS: MUPIROCIN 2% OINT 22 GM TUBE TOPICAL SCH ×2 (05:07→14:00)
[2016-05-29 08:00] VITALS: BP 139/99; PULSE 95; RESP 20; TEMP 97.9; O2SAT 100
[2016-05-29] MEDS: GABAPENTIN 300 MG CAP PO SCH (08:01)
[2016-05-29] MEDS: levETIRAcetam 500 MG TAB PO SCH (08:02)
[2016-05-29] MEDS: LIPASE/PROTEASE/AMYLASE (24,000/76,000/120,000) CAP PO SCH (08:02)
[2016-05-29] MEDS: LORazepam 0.5 MG TAB G-TUBE PRN (08:02)
[2016-05-29] MEDS: SODIUM CHLORIDE 0.9% FLUSH 10 ML FLUSH IV FLUSH SCH (08:59)
[2016-05-29] MEDS: SODIUM CHLOR 0.45% 1000 ML INJ 1,000 ML IV SCH (09:50)
[2016-05-29] MEDS ORDERED: VANCOMYCIN INJ 1,000 MG in SODIUM CHLOR 0.9% 250 ML INJ 250 ML IV ONE (11:30)
[2016-05-29] MEDS ORDERED: LORazepam 2 MG TAB G-TUBE ONE (11:30)
--- NOTE | 2016-05-29 11:30 | HHI.PR ---
Subjective Remarks Follow up for generalized pain. The patient is asking to go home today. She intermittently states that she feels fine and wants to go home and also that she is having generalized pain. She doesn't feel like her symptoms are due to stopping Oxycodone 3 days prior to admission, she feels like she weaned herself off over a few weeks prior to admission. She states that her PCP gave her verbal plan for tapering off of oxycodone. She still has some nausea, but like to try to see if she can tolerate her tube feedings. She is on a special tube feeding product for small bowel bacterial overgrowth syndrome with no lactose or gluten. Her family has arranged for PCP follow-up here with Dr. Rios. Objective Vitals Vital Signs Date Time Temp Pulse Resp B/P Pulse Ox O2 Delivery O2 Flow Rate FiO2 05/29/16 08:21 18 05/29/16 08:00 97.9 95 20 139/99 100 05/29/16 03:52 98.0 89 19 105/73 97 05/28/16 21:07 98.6 103 19 121/91 97 05/28/16 18:28 152/90 05/28/16 15:36 98.5 116 16 170/72 98 I/O 05/28/16 05/28/16 05/28/16 05/29/16 05/29/16 05/29/16 07:00 15:00 23:00 07:00 15:00 23:00 Intake Total 1900 ml Output Total 800 ml Balance 1100 ml Intake Oral 480 ml IV Total 1420 ml Output Urine Total 800 ml Bladder Scan Volume Amount 530 ml # Voids 4 # Bowel Movements 1 Result Diagram: 05/28/16 0845 05/28/16 0845 Imaging Last Impressions Abdomen/Pelvis CT 05/27/16 [id number] Signed Impressions: Service Date/Time: Friday, May 27, 2016 23:36 - CONCLUSION: Normal examination. Patient has a gastrojejunostomy tube without complication. Mookie Meeks MD Objective Remarks GENERAL: Well-developed well-nourished. In mild distress secondary to generalized pain. SKIN: Warm and dry. Superficial excoriations around GJ tube with no surrounding erythema or drainage. HEENT: Normocephalic. Pupils equal and round. Mucous membranes pink and moist. CARDIOVASCULAR: Regular rate and rhythm. No murmur appreciated. RESPIRATORY: No accessory muscle use. Clear to auscultation. Breath sounds equal bilaterally. GASTROINTESTINAL: Abdomen soft, non-tender, nondistended. Bowel sounds x4. GJ tube in place. MUSCULOSKELETAL: No obvious deformities. No clubbing or cyanosis. No edema. NEUROLOGICAL: Awake and alert. No focal neurological deficits. Moves upper and lower extremities spontaneously. Normal speech. PSYCHIATRIC: Appropriate mood and affect; insight and judgment normal. A/P Problem List: (1) Dehydration ICD Code: E86.0 Status: Resolved (2) Abdominal pain ICD Code: R10.9 Status: Acute Assessment and Plan 30-year-old chronically ill female visiting her sister here in the [place] area from [place] with a past medical history history of lupus, gastroparesis, hypertension, irritable bowel syndrome who presented with generalized weakness and abdominal cramping SIRS, Hypotension, tachycardia, lactic acidosis: Suspect secondary to withdrawals and dehydration, however acute infection remains in the differential. Afebrile, no leukocytosis. Vitals and labs improved with IVF. Continue IVF. Bacteremia?: Blood cultures 02/11 growing staph epidermidis, likely contaminant. Blood cultures preliminarily growing staph species, discuss with lab, more definitive ID available tomorrow. Continue IV ceftriaxone. Abnormal UA and possible UTI: UA appears borderline, however with urinary retention will empirically treat with IV Ceftriaxone 2 g IV every 24 hours. Follow-up urine culture. Gastroparesis: Likely exacerbating dehydration. Continue clear liquids. Resume home tube feedings as tolerated. Abdominal Pain/cramping: Suspect secondary to acute opiate withdrawal. Abdomen/ pelvis CT normal with GJ tube in place. LFTs and lipase within normal limits. Patient last took oxycodone 3 days prior to admission and UDS is negative for opiates. Treat withdrawal as below. Acute withdrawal from multiple controlled substances: Patient on multiple controlled substances including oxycodone, Ativan, Soma as outpatient, states she is compliant and follows up with physicians in [place]. She feels like she is currently experiencing withdrawal symptoms with shaking, nausea, abdominal cramping. However, she would like to wean off of these medications. The patient's sister will bring in the patient's pill bottles to confirm home doses. UDS positive for benzodiazepines. Once home medications are confirmed we will resume oxycodone, Ativan at decreased doses. 05/29 clinically the patient's suspected withdrawal symptoms appear better controlled today, will increase Ativan dosing and resume home Soma. Benadryl as needed. Encouraged patient follow-up with an addiction medicine specialist to continue weaning off of addictive medications. Acute urinary retention: The patient felt like she was unable to void. Bladder scan was done which showed 550 cc in the bladder. The patient states that this is chronic. Inserted Maxwell catheter, with significant urine output per RN. However, patient was uncomfortable with Maxwell catheter, and threatened to pull it out if removed. Continues to refuse Maxwell. Excoriation around GJ tube, does not appear acutely infected - Bactroban 2% ointment 3 times a day to prevent infection - Keep area clean and dry History of seizure 1: Patient states this is secondary to an adverse effect from medication. She says she was taken off of AEDs by her PCP, and has plans to follow up with the neurologist. DVT prophylaxis - SCDs Written by Canelo Angela, acting as scribe for Dr. Talavera on 05/29/16 at 12:52. Discharge Planning Possible discharge planning later today if patient is able to tolerate tube feeding and withdrawals are reasonably controlled. Attending Statement This note was transcribed by scribe. I, Dr. Rosie Talavera personally performed the history, physical exam, and medical decision making; and confirmed the accuracy of the information in the transcribed note. Problem Qualifiers (1) Abdominal pain: Qualified Code: R10.84 - Generalized abdominal pain Canelo Angela May 29, 2016 11:30 Rosie Talavera MD June 09, 2016 11:12
[2016-05-29] MEDS ORDERED: CARISOPRODOL 350 MG TAB PEG PRN (12:45)
[2016-05-29] MEDS ORDERED: diphenhydrAMINE HCL 25 MG CAP PEG PRN (12:45)
[2016-05-29] MEDS ORDERED: LORazepam 2 MG/ML VIAL IV PUSH ONE (13:00)
[2016-05-29] MEDS ORDERED: METHADONE HCL 10 MG TAB PO ONE (14:30)
[2016-05-29] MEDS ORDERED: LORazepam 0.5 MG TAB G-TUBE PRN (14:45)
[2016-05-29 16:11] VITALS: BP 126/101; PULSE 100; RESP 18; TEMP 97.9; O2SAT 95
[2016-05-29] MEDS ORDERED: CLON0.1T PO (17:09)
[2016-05-29] MEDS ORDERED: diphenhydrAMINE HCL 50 MG/ML VIAL ONE (17:11)
[2016-05-29] MEDS ORDERED: diphenhydrAMINE HCL 50 MG/ML VIAL IV PUSH ONE (17:15)
== END 2016-05-29 18:36 | disposition home or self-care (01) ==
LOC: NEPC 20:35 → NEDA 05-28 00:39 → NEPFCDU 05-28 01:58
PROVIDERS: ADMIT Family Medicine; ATTEND Family Medicine
DX: R10.9 Unspecified abdominal pain (principal); A41.9 Sepsis, unspecified organism; E86.0 Dehydration; R00.0 Tachycardia, unspecified; R11.0 Nausea; R53.83 Other fatigue; Z93.1 Gastrostomy status; K58.9 Irritable bowel syndrome, unspecified; I10 Essential (primary) hypertension; E87.2 Acidosis; K31.84 Gastroparesis; R33.9 Retention of urine, unspecified; R56.9 Unspecified convulsions; B96.5 Pseudomonas (aeruginosa) (mallei) (pseudomallei) as the cause of diseases classified elsewhere
CPT/HCPCS: 74177; 80053; 80307; 81001; 83605; 83690; 84703; 85025; 87040; 87077; 87086; 87149; 87186; 87205; 87804; 96361; 96374; 99285; G0378; J0696; J1200; J2060; J2270; J2405; J7030; Q9967